=== PATIENT | male | born 1970 | race Caucasian/White ===

== ENCOUNTER 2025-06-09 11:12 | Emergency (ER) | payer BC ==
[2025-06-09] MEDS ORDERED: AZITHROMYCIN 500 MG INJ IVPB ONE (11:37)
[2025-06-09] MEDS ORDERED: NA CHLORIDE 0.9% 1,000 ML ONE (11:37)
[2025-06-09] MEDS ORDERED: CEFTRIAXONE 1000 MG/VIAL ONE (11:37)
[2025-06-09 11:58] LABS: Absolute Lymphocytes (CBC) 1.3 K/uL (0.7-4.9); Hematocrit 48.5 % (39.6-49.0); Hemoglobin 16.9 g/dL (13.6-17.9); MCHC 34.9 g/dL (32.0-36.0)
[2025-06-09 12:09] LABS: MCH 30.7 pg (27.0-35.0); MCV 88.0 fL (80-100); MPV 8.2 fL (7.6-11.3); Nucleated RBC Absolute Count 0.0 (0-0); Nucleated Red Blood Cells % 0.2 % (0-0); RBC Red Blood Cell Count 5.51 M/uL (4.33-5.43); White Blood Count 9.20 thou/uL (4.3-10.9)
[2025-06-09 12:15] LABS: Anion Gap 10.1 mEq/L (5.0-15.0); BUN Blood Urea Nitrogen 11.0 mg/dL (7-18); Glucose Level 258.0 mg/dL (74-106); Potassium 4.1 mEq/L (3.5-5.1)
--- NOTE | 2025-06-09 12:21 | RAD REPORT ---
Procedure: Chest Pa And Lat (2 Views) HISTORY: Cough COMPARISON: none FINDINGS: 8 cm consolidation lingula. Right lung is clear. No significant pleural effusion noted. The heart is normal size. IMPRESSION: Lingular pneumonia. This should be followed with x-ray until it has cleared to help exclude a postobs tructive process/underlying mass
--- NOTE | 2025-06-09 13:09 | ER ---
Nurse's Notes [facility] Name: Greyson Barbosa Age: 55 yrs Sex: Male : 1970 Arrival Date: 06/09/2025 Time: 11:12 Bed 8 Private MD: Diagnosis: Unspecified bacterial pneumonia Presentation: 06/09 11:26 Chief complaint: Patient states: [facility] for [facility] evaluation ss and treatment of pneumonia and elevated blood sugar Pt reports cough, fever x 3-4 days. Coronavirus screen: Client denies travel out of the [place] in the last 14 days. Ebola Screen: Patient denies exposure to infectious person. Patient denies travel to an Ebola-affected area in the 21 days before illness onset. Initial Sepsis Screen: Does the patient meet any 2 criteria? No. Patient's initial sepsis screen is negative. Does the patient have a suspected source of infection? No. Patient's initial sepsis screen is negative. Risk Assessment: Do you want to hurt yourself or someone else? Patient reports no desire to harm self or others. Onset of symptoms was June 06, 2025. 11:26 Method Of Arrival: Ambulatory ss 11:26 Acuity: LENA 3 ss Triage Assessment: 11:30 General: Appears in no apparent distress. ill, Behavior is calm, cooperative, bp appropriate for age. Pain: Denies pain. EENT: No deficits noted. Neuro: No deficits noted. Cardiovascular: No deficits noted. Respiratory: Reports cough that is. GI: No signs and/or symptoms were reported involving the gastrointestinal system. : No signs and/or symptoms were reported regarding the genitourinary system. Derm: No deficits noted. Musculoskeletal: No deficits noted. Historical: - Allergies: 11:28 No Known Allergies; ss - Home Meds: 11:28 None [Active]; ss - PMHx: 11:28 "pre diabetic"; ss - PSHx: 11:28 Appendectomy; lipoma removal; Vasectomy; ss - Immunization history:: Adult Immunizations up to date. - Infectious Disease History:: Denies. - Social history:: Smoking status: Patient denies any tobacco usage or history of. Screenin:10 [facility] ED Fall Risk Assessment (Adult) History of falling in the last 3 months, bp including since admission No falls in past 3 months (0 pts) Confusion or Disorientation No (0 pts) Intoxicated or Sedated No (0 pts) Impaired Gait No (0 pts) Mobility Assist Device Used No (0 pt) Altered Elimination No (0 pt) Score/Fall Risk Level 0 - 2 = Low Risk Oriented to surroundings. Abuse screen: Denies threats or abuse. Denies injuries from another. Nutritional screening: No deficits noted. Tuberculosis screening: No symptoms or risk factors identified. Assessment: 11:30 General: SEE TRIAGE NOTE. bp 13:10 Reassessment: Patient appears in no apparent distress at this time. Patient states bp symptoms have improved. Vital Signs: 11:26 BP 171 / 105; Pulse 103; Resp 19; Temp 99(O); Pulse Ox 96% on R/A; Weight 115.67 kg; ss Height 6 ft. 2 in. ; Pain 310; 13:08 BP 146 / 84; Pulse 95; Resp 16; Pulse Ox 98% ; bp 11:26 Body Mass Index 32.74 (115.67 kg, 187.96 cm) ss 11:26 Pain Scale: Adult ss ED Course: 11:16 Patient arrived in ED. ts1 11:16 Devonte Green FNP-C is PHCP. dr5 11:16 Jake Clemons MD is Attending Physician. dr5 11:23 Odalys Brock, MERRILL is Primary Nurse. ph 11:28 Triage completed. ss 11:28 Arm band placed on right wrist. ss 11:53 Initial lab(s) drawn, by mt, sent to lab. Inserted saline lock: 20 gauge in right bp antecubital area, using aseptic technique. Blood collected. Flushed with 10 mL NS. 11:59 Chest Pa And Lat (2 Views) XRAY In Process Unspecified. EDMS 13:10 Patient has correct armband on for positive identification. bp 13:10 No provider procedures requiring assistance completed. IV discontinued, intact, bp bleeding controlled, No redness/swelling at site. Pressure dressing applied. 13:23 Provided Education on: NA. bp Administered Medications: 11:53 Drug: NS 0.9% IV 1000 ml IV at 1000 ml once; to be given as a bolus over 60 minutes bp Route: IV; Rate: 1000 ml; Site: right antecubital; 13:23 Follow up: IV Status: Completed infusion bp 11:53 Drug: Rocephin IV 1 grams IV at per protocol once; Given slow IV push per pharmacy bp instructions Route: IV; Rate: per protocol; Site: right antecubital; 13:23 Follow up: IV Status: Completed infusion bp 11:53 Drug: AZITHromycin IVPB 500 mg IVPB once over 1 hrs; (mix in 250 mL NS) Route: IVPB; bp Infused Over: 1 hrs; Site: right antecubital; 13:23 Follow up: IV Status: Completed infusion bp Medication: 13:10 VIS not applicable for this client. bp Outcome: 13:08 Discharge ordered by . dr5 13:23 Discharged to home ambulatory, bp 13:23 Condition: stable 13:23 Discharge instructions given to patient, Instructed on discharge instructions, follow up and referral plans. medication usage, Demonstrated understanding of instructions, follow-up care, medications, Prescriptions given X 2, 13:24 Patient left the ED. bp Signatures: Dispatcher [employer] EDMS April Ricks RN RN Odalys Brock RN RN ph Peltier, Brian, RN RN bp Simpson, Tanya, PAS PAS ts1 Devonte Green, CULTURIST-C CULTURIST-Cdr5
--- NOTE | 2025-06-09 13:09 | EDPHYS ---
Physician Documentation [facility] Name: Greyson Barbosa Age: 55 yrs Sex: Male : 1970 Arrival Date: 06/09/2025 Time: 11:12 Bed 8 Private MD: ED Physician Jake Clemons HPI: 06/09 11:31 This 55 yrs old Male presents to ER via Ambulatory with complaints of Flu dr5 Symptoms, General Weakness. 11:31 Onset: The symptoms/episode began/occurred 2 day(s) ago. 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 [facility] who tested for COVID, flu, strep and which all was negative. He stated that they found pneumonia on chest x-ray and sent him here for further management. Patient was given 2 Tylenol at urgent care prior to arrival.. Historical: - Allergies: 11:28 No Known Allergies; ss - Home Meds: 11:28 None [Active]; ss - PMHx: 11:28 "pre diabetic"; ss - PSHx: 11:28 Appendectomy; lipoma removal; Vasectomy; ss - Immunization history:: Adult Immunizations up to date. - Infectious Disease History:: Denies. - Social history:: Smoking status: Patient denies any tobacco usage or history of. ROS: 11:31 Constitutional: as per hpi dr5 Exam: 11:31 Constitutional: This is a well developed, well nourished patient who is awake, alert, dr5 and in no acute distress. Head/Face: Normocephalic, atraumatic. Eyes: Pupils equal round and reactive to light, extra-ocular motions intact. Lids and lashes normal. Conjunctiva and sclera are non-icteric and not injected. Cornea within normal limits. Periorbital areas with no swelling, redness, or edema. Neck: Trachea midline, no thyromegaly or masses palpated, and no cervical lymphadenopathy. Supple, full range of motion without nuchal rigidity, or vertebral point tenderness. No Meningismus. Chest/axilla: Normal chest wall appearance and motion. Nontender with no deformity. No lesions are appreciated. Cardiovascular: Tachycardic rate and rhythm with a normal S1 and S2. Normal PMI, no JVD. No pulse deficits. 11:31 Abdomen/GI: Soft, non-tender, non-distended Back: No spinal tenderness. No costovertebral tenderness. Full range of motion. Skin: Warm, dry with normal turgor. Normal color with no rashes, no lesions, and no evidence of cellulitis. MS/ Extremity: Pulses equal, no cyanosis. Neurovascular intact. Full, normal range of motion. Neuro: Awake and alert, GCS 15, oriented to person, place, time, and situation. Cranial nerves II-XII grossly intact. Motor strength 5/5 in all extremities. Sensory grossly intact. Cerebellar exam normal. Normal gait. 11:31 Respiratory: mild respiratory distress is noted, Respirations: no acute changes, labored breathing, Breath sounds: rhonchi, that are mild, are heard in the left posterior upper lobe and left posterior lower lobe, Vital Signs: 11:26 BP 171 / 105; Pulse 103; Resp 19; Temp 99(O); Pulse Ox 96% on R/A; Weight 115.67 kg; ss Height 6 ft. 2 in. ; Pain 3/10; 13:08 BP 146 / 84; Pulse 95; Resp 16; Pulse Ox 98% ; bp 11:26 Body Mass Index 32.74 (115.67 kg, 187.96 cm) ss 11:26 Pain Scale: Adult ss MDM: 11:17 Medical Screening Exam initiated dr5 13:08 Differential diagnosis: viral Infection, bacterial infection, bronchitis, pneumonia. dr5 Data reviewed: vital signs, nurses notes, lab test result(s), CBC, white blood cell count, hemoglobin, hematocrit, platelets, electrolytes, sodium, potassium, chloride, serum bicarbonate, BUN, creatinine, serum glucose, radiologic studies, plain films. Consideration of Admission/Observation Escalation of care including admission/observation considered. Escalation considered patient found to have sepsis with fever and elevated white blood cell count. I considered the following discharge prescriptions or medication management in the emergency department I discussed and recommended Over The Counter medications, Medications were administered in the Emergency Department. See MAR. Independent interpretation of the following test(s) in the Emergency Department X-Ray: My interpretation is Independent interpretation of chest x-ray reveals infiltrates on left side concerning for pneumonia. Care significantly affected by the following Social Determinants of Health: Poor access to healthcare and/or lack of insurance, Poor access to transportation, Problems related to employment. Counseling: I had a detailed discussion with the patient and/or guardian regarding the historical points, exam findings, and any diagnostic results supporting the discharge/admit diagnosis, the presence of at least one elevated blood pressure reading (>120/80) during this emergency department visit, lab results, radiology results, the need for outpatient follow up, for definitive care, a family practitioner, to return to the emergency department if symptoms worsen or persist or if there are any questions or concerns that arise at home. Medication response: Azithromycin, Rocephin. Response to treatment: Symptom-free and did not develop rash or allergic reaction. Special discussion: I discussed with the patient/guardian in detail that at this point there is no indication for admission to the hospital. It is understood, however, that if the symptoms persist or worsen the patient needs to return immediately for re-evaluation. Based on the history and exam findings, there is no indication for further emergent testing or inpatient evaluation. I discussed with the patient/guardian the need to see the primary care provider for further evaluation of the symptoms. ED course: Antibiotics given in ER. Will place patient on outpatient antibiotics for community-acquired pneumonia. Increase hydration. Recommend alternating Tylenol Motrin as needed for pain and fever. All questions answered. Patient reports that much better on discharge. Vital signs have improved and are stable. Strict ER precautions given.. ED course: Labs printed out for patient to follow-up with primary care doctor given elevated blood sugar and need for recheck when patient is well.. 06/09 11:26 Order name: CBC with Diff; Complete Time: 12:10 dr5 06/09 11:26 Order name: BMP; Complete Time: 12:17 dr5 06/09 11: Order name: Chest Pa And Lat (2 Views) XRAY; Complete Time: 12:25 dr5 Administered Medications: 11:53 Drug: NS 0.9% IV 1000 ml IV at 1000 ml once; to be given as a bolus over 60 minutes bp Route: IV; Rate: 1000 ml; Site: right antecubital; 13:23 Follow up: IV Status: Completed infusion bp 11:53 Drug: Rocephin IV 1 grams IV at per protocol once; Given slow IV push per pharmacy bp instructions Route: IV; Rate: per protocol; Site: right antecubital; 13:23 Follow up: IV Status: Completed infusion bp 11:53 Drug: AZITHromycin IVPB 500 mg IVPB once over 1 hrs; (mix in 250 mL NS) Route: IVPB; bp Infused Over: 1 hrs; Site: right antecubital; 13:23 Follow up: IV Status: Completed infusion bp Disposition: 13:59 Co-signature as Attending Physician, Jake JACKSON I reviewed the patient's care rn provided by the Advanced Practice Provider and agree with the diagnosis and treatment plan. Disposition Summary: 06/09/25 13:08 Discharge Ordered Notes: Location: Home dr5 Condition: Stable dr5 Diagnosis - Unspecified bacterial pneumonia dr5 Followup: dr5 - With: Emergency Department - When: As needed - Reason: Worsening of condition Followup: dr5 - With: Private Physician - When: 1 - 2 days - Reason: Recheck today's complaints, Continuance of care, Re-evaluation by your physician Discharge Instructions: - Discharge Summary Sheet dr5 - Community-Acquired Pneumonia, Adult dr5 Forms: - Medication Reconciliation Form dr5 - Antibiotic Education dr5 - Patient Portal Instructions dr5 - Leadership Thank You Letter dr5 Prescriptions: - Augmentin 875-125 mg Oral Tablet - take 1 tablet ORAL route every 12 hours for 10 days; 20 tablet; Refills: 0, dr5 Product Selection Permitted - Zithromax Z-Дмитрий 250 mg Oral tablet - take 1 tablet ORAL route once daily for 4 days; 4 tablet; Refills: 0, Product dr5 Selection Permitted Signatures: Dispatcher [employer] EDJake Alex MD MD rn Blanchard, Shelby, RN RN ss Peltier, Brian, RN RN bp Rhodes, Dustin, REAL ESTATE AGENT-C REAL ESTATE AGENT-Cdr5 Corrections: (The following items were deleted from the chart) 11:27 11:27 CBC+H.LAB.BRZ ordered. EDMS EDMS 11:27 11:27 BASIC METABOLIC PANEL+C.LAB.BRZ ordered. EDMS EDMS
[2025-06-09 13:41] VITALS: TEMP 99
[2025-06-09 13:47] VITALS: BP 146/84; O2SAT 98
== END 2025-06-09 13:24 | disposition home or self-care (01) ==
LOC: ER 11:12
DX: J15.9 Unspecified bacterial pneumonia (principal)
CPT/HCPCS: 96365; 96368; 85025; 80048; 36415; 71046; 99284; J0456; J7030; J0696